=== PATIENT | female | born 1950 | race Caucasian/White ===

== ENCOUNTER → 2016-07-03 | Outpatient (CLI) | payer OTHER ==
--- NOTE | 2016-07-03 16:40 | DX ---
Right Knee, 3 standing views including a merchant view History: Sudden pain in the knee without trauma Comparison: None Findings: The knee is normally aligned. There are tiny osteophytes around the knee. There are small o steophytes involving the posterior patellar margins. There is no knee joint effusion. Mineralization is normal. There is no subcortical cyst formation or erosive change. Impression: Minimal degenerative change. No obvious source for acute pain identified.
--- NOTE | 2016-07-03 17:04 | US ---
Right Lower Extremity Ultrasound and Venous Duplex Doppler Study History: Knee and calf pain. Comparison: None available. Technique: High-frequency transducer was used for imaging and Doppler study of the veins of the lowe r extremity. Pulsed Doppler and color Doppler were utilized, along with various maneuvers to assess flow in the veins. Findings: The deep veins of the lower extremity are normally compressible between the groin and the upper calf and have normal Doppler waveforms within them. No venous thrombosis is identified. Impression: No evidence of deep vein thrombosis. Findings discussed with America Nguyen today at 1654 hours.
== END ==
LOC: FIMAGING 15:51
PROVIDERS: ATTEND Nurse Practitioner Family
DX: M25.561 Pain in right knee (principal)

== ENCOUNTER → 2016-09-02 | Outpatient (CLI) | payer OTHER | LOC: FIMAGING 14:22 | DX: Z12.31 Encounter for screening mammogram for malignant neoplasm of breast (principal) | CPT/HCPCS: G0202 ==

== ENCOUNTER → 2017-02-12 | Outpatient (CLI) | payer OTHER | LOC: FIMAGING 11:02 | PROVIDERS: ATTEND Nurse Practitioner Family | DX: Z13.820 Encounter for screening for osteoporosis (principal); Z78.0 Asymptomatic menopausal state ==

== ENCOUNTER → 2017-09-17 | Outpatient (CLI) | payer OTHER | LOC: FIMAGING 13:22 | PROVIDERS: ATTEND Nurse Practitioner Family | DX: Z12.31 Encounter for screening mammogram for malignant neoplasm of breast (principal) ==

== ENCOUNTER → 2018-11-10 | Outpatient (CLI) | payer OTHER | LOC: FIMAGING 10:40 ==